=== PATIENT | female | born 1985 | race Caucasian/White ===

== ENCOUNTER 2016-11-22 06:36 | Inpatient (IN) | payer OTHER ==
[2016-11-22] VITALS (30 sets, daily range): BP systolic 104–138; BP diastolic 56–83; PULSE 65–100; TEMP 98.1–99.6
[~2016-11-22] VITALS: Ht 170.2 cm; Wt 92.9 kg
[~2016-11-22 06:36] MED LIST: PRENATAL
[2016-11-22 07:53] LABS: BASO % 0.4 % (0.0-2.0); EOS # 0.1 (0.0-0.7); EOS % 1.1 % (0-4.0); GRAN # 5.2 (1.4-6.5); GRAN % 72.7 % (42.2-75.2); HEMATOCRIT 37.1 % (37.0-47.0); LYMPH # 1.3 (1.2-3.4); LYMPH % 18.1 % (20.0-51.0); MEAN CELL VOLUME 89 fl (80.0-100.0); MEAN CORPUSCULAR HEMOGLOBIN 31 pg (27.0-31.0); MEAN CORPUSCULAR HGB CONC 35 g/dl (33.0-37.0); MEAN PLATELET VOLUME 8.9 fl (7.4-10.4); MONO # 0.5 (0.1-0.6); PLATELET COUNT 168 K/mm3 (130-400); RED BLOOD COUNT 4.19 M/mm3 (4.10-5.30); REDCELL DISTRIBUTION WIDTH-CV 13.2 % (11.5-14.5); WHITE BLOOD COUNT 7.1 K/mm3 (4.8-10.8)
[2016-11-23] MEDS ORDERED: IBU800 M1 PO (10:26)
[2016-11-23] MEDS ORDERED: PERCOCET 325 MG1 TA2 PO (10:27)
[2016-11-23] MEDS ORDERED: PHENERGAN W/CO120 M1 PO (10:27)
== END 2016-11-23 16:55 | disposition home or self-care (01) | DRG 775 ==
LOC: LDR 06:36 → OB 13:56
PROVIDERS: Obstetrics & Gynecology
PROC: 10E0XZZ Delivery of Products of Conception, External Approach (ICD-10-PCS; principal; 2016-11-22)
PROC: 0UQM0ZZ Repair Vulva, Open Approach (ICD-10-PCS; 2016-11-22)
DX: O70.0 First degree perineal laceration during delivery (principal); Z3A.39 39 weeks gestation of pregnancy; Z37.0 Single live birth
CPT/HCPCS: J2210; J2405; J2590; J2795; J7120